=== PATIENT | male | born 1965 | race African-American/Black ===

== ENCOUNTER 2025-09-13 18:12 | Inpatient (IN) | payer SELFPAY ==
[~2025-09-13] VITALS: Ht 167.6 cm; Wt 71.2 kg
[2025-09-13 20:04] LABS: COVID AG,FIA SOURCE NASAL SWAB
[2025-09-13 20:04] LABS: PLATELET COUNT (AUTO) 265 K/uL (150-450); RED BLOOD CELL COUNT(AUTO) 5.62 MIL/uL (4.50-5.90); RED CELL DISTRIBUTION WIDTH 15.5 % (11.5-14.5); WHITE BLOOD COUNT (AUTO) 16.5 K/uL (4.5-11.0)
[2025-09-13 20:14] LABS: CALCIUM, TOTAL 9.0 mg/dL (8.8-10.5); CREATININE 1.99 mg/dL (0.60-1.30); GLOMERULAR FILTR. RATE CALC 34 mL/min (>60); GLUCOSE,RANDOM 181 mg/dL (70-110); SODIUM SERUM 136 mmol/L (136-145); UREA NITROGEN, BLOOD 13 mg/dL (7-18)
[2025-09-13 20:19] LABS: CREATINE KINASE, TOTAL ONLY 338 U/L (39-308)
[2025-09-13 20:22] LABS: TROPONIN I-HIGH SENSITIVITY 20 ng/L (<76)
[2025-09-13 20:42] LABS: SARS-COV2 (COVID) ANTIGEN,FIA Negative (Negative)
[2025-09-13 20:43] LABS: INFLUENZA TYPE A NEGATIVE FOR TYPE A (NEGATIVE); INFLUENZA TYPE B NEGATIVE FOR TYPE B (NEGATIVE)
[2025-09-13] MEDS: EPINEPHrine 1:1,000 [1 MG/ML] VIAL IM ONE (21:36)
[2025-09-13] MEDS ORDERED: 0.9% SODIUM CHLORIDE 5 ML NEB SOLUTION NEB ONE (21:37)
[2025-09-13 21:40] VITALS: PULSE 98; RESP 20; O2SAT 99
[2025-09-13] MEDS: ALBUTEROL SULFATE 2.5 MG/0.5 ML NEB SOLUTION NEB ONE (21:40)
[2025-09-13 21:50] VITALS: PULSE 105; RESP 20; O2SAT 99
[2025-09-13] MEDS ORDERED: ALBU18HF12 IH (22:52)
[2025-09-13] MEDS ORDERED: ACETAMINOPHEN 325 MG TABLET PO PRN (23:30)
[2025-09-13] MEDS ORDERED: OxyCODONE HCL/ACETAMINOPHEN 5-325 MG TABLET PO PRN (23:30)
[2025-09-13] MEDS ORDERED: MAGNESIUM HYDROXIDE SUSPENSION 30 ML UDCUP PO PRN (23:30)
[2025-09-13] MEDS ORDERED: ZOLPIDEM TARTRATE 5 MG TABLET PO PRN (23:30)
[2025-09-13] MEDS ORDERED: MORPHINE SULFATE 4 MG/ML SYRINGE IVP PRN (23:30)
[2025-09-13] MEDS ORDERED: BISACODYL 10 MG RECTAL RECTAL SUPPOSITORY PR PRN (23:30)
[2025-09-13] MEDS ORDERED: ONDANSETRON HCL 4 MG/2 ML VIAL IVP PRN (23:30)
[2025-09-13] MEDS: HEPARIN SODIUM,PORCINE 5,000 UNITS/ML VIAL SQ SCH (23:35)
[2025-09-14] VITALS (18 sets, daily range): BP systolic 126–146; BP diastolic 74–87; PULSE 96–107; RESP 16–26; TEMP 97.5–98.9; O2SAT 94–100
[2025-09-14] MEDS: ALBUTEROL SULFATE 2.5 MG/0.5 ML NEB SOLUTION NEB PRN (00:48)
[2025-09-14] MEDS: IPRATROPIUM BROMIDE 0.5 MG/2.5 ML NEB SOLUTION NEB PRN (00:48)
[2025-09-14] MEDS: POTASSIUM CHLORIDE 20 MEQ ER TABLET PO ONE (02:08)
[2025-09-14] MEDS: ALBUTEROL SULFATE 2.5 MG/0.5 ML NEB SOLUTION NEB SCH (02:27)
[2025-09-14] MEDS: IPRATROPIUM BROMIDE 0.5 MG/2.5 ML NEB SOLUTION NEB SCH (02:27)
[2025-09-14 06:05] LABS: PLATELET COUNT (AUTO) 279 K/uL (150-450); RED BLOOD CELL COUNT(AUTO) 5.29 MIL/uL (4.50-5.90); RED CELL DISTRIBUTION WIDTH 15.5 % (11.5-14.5); WHITE BLOOD COUNT (AUTO) 14.7 K/uL (4.5-11.0)
[2025-09-14 06:10] LABS: CALCIUM, TOTAL 9.4 mg/dL (8.8-10.5); CREATININE 1.74 mg/dL (0.60-1.30); GLOMERULAR FILTR. RATE CALC 49.0 mL/min (>60); GLUCOSE,RANDOM 228.0 mg/dL (70-110); SODIUM SERUM 139.0 mmol/L (136-145); UREA NITROGEN, BLOOD 17.0 mg/dL (7-18)
[2025-09-14] MEDS: PANTOPRAZOLE SODIUM 40 MG DR TABLET PO SCH (09:00)
[2025-09-14] MEDS: DOCUSATE SODIUM 100 MG CAPSULE PO SCH (09:00)
[2025-09-14 23:35] LABS: APPEARANCE,URINE CLEAR (CLEAR); GLUCOSE, URINE (UA) >=1000 mg/dL (NEGATIVE); LEUKOCYTE ESTERASE ,URINE NEGATIVE (NEGATIVE); NITRATE,URINE NEGATIVE (NEGATIVE); OCCULT BLOOD,URINE NEGATIVE (NEGATIVE); SPECIFIC GRAVITIY, URINE 1.024 (1.003-1.030)
[2025-09-14 23:42] LABS: SQUAMOUS EPITHELIAL CELL,UR Moderate /LPF (None Seen)
[2025-09-15] VITALS (10 sets, daily range): BP systolic 136; BP diastolic 63–78; PULSE 89–107; RESP 18–22; TEMP 98.1–98.6; O2SAT 94–100
[2025-09-15] MEDS ORDERED: PRED-554 PO (11:15)
[2025-09-15] MEDS ORDERED: ALBUTEROL SULFATE HFA 90 MCG/PUFF 8 GM INHALER IH PRN (13:30)
== END 2025-09-15 15:25 | disposition home or self-care (01) | DRG 203 ==
LOC: EMS 18:12 → EDH 23:17 → EDBD 23:17 → 5S 09-14 01:25 → 5N 09-14 01:30 → 4E 09-14 11:48
PROVIDERS: ADMIT Hospitalist; ATTEND Hospitalist
DX: J45.901 Unspecified asthma with (acute) exacerbation (principal); E87.6 Hypokalemia; N28.9 Disorder of kidney and ureter, unspecified; Z20.822 Contact with and (suspected) exposure to COVID-19; D72.829 Elevated white blood cell count, unspecified
CPT/HCPCS: 71045; 80048; 81001; 82550; 83880; 84484; 85025; 85379; 87040; 87804; 93005; 94640; 96372; 96374; 99285; G0378; J0169; J1644; J2919; J3535; 36415-L1; 36415-TC; J7613